=== PATIENT | male | born 1990 | race African-American/Black ===

== ENCOUNTER 2024-01-12 10:35 | Emergency (ER) | payer OTHER, MEDICAID ==
[~2024-01-12] VITALS: Ht 170.2 cm; Wt 54.0 kg
[2024-01-12 10:38] VITALS: O2SAT 99
[2024-01-12 11:26] VITALS: TEMP 36.39180
[2024-01-12 12:31] VITALS: BP 112/75; PULSE 75; RESP 16; O2SAT 100
== END 2024-01-12 12:33 ==
LOC: ER 10:35
DX: T65.891A Toxic effect of other specified substances, accidental (unintentional), initial encounter (principal); F12.10 Cannabis abuse, uncomplicated; Y92.9 Unspecified place or not applicable
CPT/HCPCS: 99283

== ENCOUNTER 2024-03-09 17:37 | Emergency (ER) | payer MEDICAID, OTHER ==
[~2024-03-09] VITALS: Ht 172.7 cm; Wt 80.0 kg
[2024-03-09 17:43] VITALS: BP 134/86; PULSE 80; RESP 16; TEMP 97.8; O2SAT 100
[2024-03-09] MEDS ORDERED: SULF1TAB48 MT (17:45)
== END 2024-03-09 17:48 | disposition home or self-care (01) ==
LOC: ER 17:37
DX: L03.113 Cellulitis of right upper limb (principal)
CPT/HCPCS: 99283